=== PATIENT | female | born 1975 ===

== ENCOUNTER 2025-04-10 20:05 | Emergency (ER) | payer OTHER, SELFPAY ==
[2025-04-10] VITALS (10 sets, daily range): BP systolic 115–157; BP diastolic 77–91; PULSE 56–81; RESP 16–19; TEMP 36.7; O2SAT 94–98; BMI 36.8
[2025-04-10 21:01] LABS: Appearance Urine Clear (Clear)
[2025-04-10] MEDS: ONDANSETRON 2 MG/ML inj 4 MG IVP (21:07)
[2025-04-10 21:10] LABS: Ur HCG Qualitative* Negative (Negative)
[2025-04-10 21:29] LABS: Hematocrit 39.0 % (33.0-51.0); Hemoglobin* 13.3 gm/dL (12.0-16.0); Immature Granulocytes Abs Auto 0.04 K/uL (0.00-0.30); Immature Granulocytes Pct Auto 0.4 %; Lymphocytes Absolute Auto 2.21 K/uL (0.90-2.90); Mean Corpuscular HGB Conc 34 gm/dL (32-36); Mean Corpuscular Hemoglobin 32 pg (26-34); Mean Corpuscular Volume 93 fL (80-100); RDW Coefficient of Variation % 12.6 % (11.5-15.5); Red Blood Count 4.20 m/uL (4.00-5.20); White Blood Count* 9.81 K/uL (4.50-11.00)
[2025-04-10 21:36] LABS: Slide Review Reflex No
[2025-04-10 21:37] LABS: Troponin, Point-of-Care* 0.03 ng/ml (0.01-0.04)
[2025-04-10 21:42] LABS: Albumin* 4.1 g/dL (3.3-5.0)
[2025-04-10 21:45] LABS: Alanine Aminotransferase* 17 U/L (4-35); Alkaline Phosphatase* 88 U/L (40-150); Aspartate Amino Transferase* 33 U/L (12-35); Bilirubin Direct* 0.3 mg/dL (0.0-0.5); Bilirubin Total* 0.5 mg/dL (0.1-1.5); Total Protein* 8.1 g/dL (6.0-8.3)
--- NOTE | 2025-04-10 22:00 | CRLHL7_ITS ---
For Patients: As a result of the Century Cures Act, medical imaging exams and procedure reports are released immediately into your electronic medical record. You may view this report before your referring provider. If you have questions, please contact your health care provider. Indication: Right lower quadrant pain Technique: CT through the abdomen and pelvis following 95 mL Isovue 370 IV contrast Comparison: None Findings: Lower chest: Allowing for respiratory motion degradation, no acute abnormality appreciated. Hepatobiliary: No significant parenchymal abnormality is appreciated. Spleen: Unremarkable. Pancreas: Mild edema along the pancreatic head and uncinate process. Adrenal glands: No acute abnormality appreciated. Kidneys: No significant parenchymal abnormality appreciated. No visualized calculi. No hydronephrosis. Bowel: No obstruction. No focal perienteric or pericolonic stranding is appreciated. Question visualization of a normal appendix. No abnormal appendix is appreciated. Vascular: No acute abnormality appreciated. Lymph nodes: No gross lymphadenopathy. Peritoneum: No free air. No free fluid. : There is a 2.5 centimeter indeterminate density right ovarian/adnexal lesion. Soft tissues: No acute abnormality appreciated. Bones: No acute fracture. No lytic or blastic lesion. L5 pars defects with L4-5 spondylosis and spondylolisthesis. Impression: 1. There is a 2.5 centimeter indeterminate density right ovarian/adnexal cyst. This is poorly evaluated by this modality. Ultrasound recommended for further evaluation. 2. Mild edema along the pancreatic head and uncinate process, no prior examination available for comparison. Pancreatitis not excluded. Correlation with serum lipase recommended. 3. No other acute abnormality appreciated. Please note that all CT scans at this facility use dose modulation, iterative reconstruction, and/or weight-based dosing when appropriate to reduce radiation dose to as low as reasonably achievable. Dictated by Serg Dixon MD @ 04/10/2025 10:50:12 PM (Electronically Signed)
[2025-04-10] MEDS: PANTOPRAZOLE SODIUM 40 MG INJ IVP (23:15)
[2025-04-10 23:23] LABS: Troponin, Point-of-Care* 0.05 ng/ml (0.01-0.04)
[2025-04-10] MEDS: ASPIRIN 81 MG TAB.CHEW 324 MG PO (23:26)
--- OUTSIDE RECORDS SUMMARY | 2025-04-10 23:29 | XMS_ITS | Clinical Summary ---
Author Organization [facility] Address [address] [place] [id number] Care Team Providers Care Clinical Pathologist Name Role Phone Pcp, No Primary Care Provider Unavailabl e Allergies No known active allergies Medications No known medications Active Problems Problem Noted Date Diagnosed Date Pap smear for cervical cancer screening 05/19/20 Overview (05/19/2024): 04/2024 NIL/HPV negative Plan: HPV-based testing due 04/2029 Hypertriglyceridemia 05/10/2024 Family History Medical History Relation Name Comments Kidney failure Brother 1 Kidney failure Brother 2 Diabetes Brother 3 Kidney disease Brother 3 Heart attack Maternal Uncle Deep vein thrombosis Mother Heart Disease Mother Hypertension Mother Hypertension Sister Cancer-breast No Family History Relation Name Status Comments Brother 1 Brother 2 Brother 3 Alive Father Maternal Uncle Alive Mother Alive lives in [facility] Sister Alive Social History Tobacco Use Types Packs/Day Years Used Date Smoking Tobacco: Never Smokeless Tobacco: Never Tobacco Cessation:Counseling Given: Not Answered Alcohol Use Standard Drinks/Week Comments Not Currently 0 (1 standard drink = 0.6 oz pur e alcohol) Social Connections Answer Date Recorded Do you often feel lonely or isolated from those around you? 0 05/10/2024 Financial Resource Strain Answer Date R ecorded Difficulty of Paying Living Expenses 3 05/10/2024 Difficulty of Paying Living Expenses Not on file 05/10/2024 Food Insecurity Answer Date Recorded Do you worry your food will run out before you are able to buy more? 1 05/10/2024 Transportation Needs Answer Date Record ed Does lack of transportation keep you from medica l appointments? 1 05/10/2024 Does lack of transportation keep you from work, meetings or getting things that you need? 1 05/10/2024 Housing Stability Answer Date Recorded What is your housing situation today? 1 05/10/2024 Utilities Answer Date Recorded Do you have trouble paying f or utilities (for example, heat, electricity, water, phone)? 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 Pulse 68 06/24/2024 8:20 AM CUSTOMER SOLUT[employer] SUPERVISOR Temperature - - Respiratory Rate - - Oxygen Saturation 97% 06/24/2024 8:20 AM CUSTOMER SOLUTIONS SUPERVISOR Inhaled Oxygen Concentration - - Weight 84.9 kg (187 lb 4 oz) 05/10/2024 9:40 AM CDT Height 155 cm (5' 1.02) 05/10/2024 9:40 AM CDT Body Mass Index 35.35 05/10/2024 9:40 AM CDT Plan of Treatment Health Maintenance Due Date Last Done Comments Tetanus booster 12/10/1986 Depression screening for age 12+ 1987 HIV for age 15-65 12/10/1990 Hepatitis B series for 19+ ( 1 of 3 - 19+ 3-dose series) 12/10/1994 COVID-19 vaccine series ( season) 2024 Influenza Vaccine (#1) 2025 BMI (ht and wt on same day) for age 18+ 05/10/2025 05/10/2024 Mammogram for age 45-75 06/24/2025 06/24/2024 Fecal testing sDNA-FIT ([place] guard) for age 45-75 05/22/2027 05/22/2024 Lipids for age 45-75 05/10/2029 05/10/2024 Pap test for age 21-65 05/10/2029 05/10/2024 Hepatitis C screening for ag e 18-79 Completed 05/10/2024 Pneumococcal series for age 6-49 Aged Out No longer eligible based on patient's age to complete this topic Procedures Procedure Name Priority Date/Time Associated Diagnosis Comments XR MAMMO BILAT SCREENING Routine 06/24/2024 7:50 AM CUSTOMER SOLUTIONS SUPERVISOR Visit for screening mammogram SDNA-FIT EXTERNAL (COLOGUARD) Routine 05/22/2024 8:55 AM CDT Colon cancer screening 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 THIN PREP PAP AND HPV DNA - AGE 25 AND OVER ([facility]) Routine 05/10/2024 10:56 AM CDT Cervical cancer screening ANTI HCV Routine 05/10/2024 12:00 AM CDT Encounter for HCV screening test for low risk patient LIPID PANEL W REFLEX MEASURED LDL Routine 05/10/2024 12:00 AM CDT Hypertriglyceridemia Screening cholesterol level from Last 3 Months or Most Recently Relevant to Health Maintenance Results * XR MAMMO BILAT SCREENING (06/24/2024 7:50 AM CUSTOMER SOLUTIONS SUPERVISOR) Anatomical Region Laterality Modality BREASTS, Breast Left, Breast Right Bilateral Mammography Impressions 06/29/2024 1:43 PM CUSTOMER SOLUTIONS SUPERVISOR There is no radiographic evidence for malignancy. Recommend annual mammograms. MAMMOGRAM ASSESSMENT: ACR 1 Negative PATIENTS: You will also receive a letter with your examination results in an easy to read format. If you have questions about your results, please contact your referring provider. Narrative 06/29/2024 1:43 PM CUSTOMER SOLUTIONS SUPERVISOR For Patients: As a result of the Century Cures Act, medical imaging exams and procedure reports are released immediately into your electronic medical record. You may view this report before your referring provider. If you have questions, please contact your health care provider. XR MAMMO BILAT SCREENING [[id number]] CLINICAL HISTORY: This is an asymptomatic 48 y.o. patient. INDICATION FOR EXAM: Mammogram Screening. TECHNIQUE: CC & MLO views were obtained. This study was evaluated with the assistance of Computer-Aided Detection. COMPARISON FILM: This is a baseline study. FINDINGS: The breasts are heterogeneously dense, which may obscure small masses. There are no dominant masses, suspicious micro calcifications or areas of architectural distortion. us Felicity Campbell MD MAMMO Fi nal Result * SDNA-FIT EXTERNAL (COLOGUARD) (05/22/2024 8:55 AM CDT) NONINV COLON CA DNA+OCC BLD SCRN STL-IMP Negative Negative 06/02/2024 6:44 PM CDT [employer] (CLIA #:[id number]) Comment: NEGATIVE TEST RESULT. A negative Cologuard result indicates a low likelihood that a colorectal cancer (CRC) or advanced adenoma (adenomatous polyps with more advanced pre-malignant features) is present. The chance that a person with a negative Cologuard test has a colorectal cancer is less than 1 in 1500 (negative predictive value >99.9%) or has an advanced adenoma is less than 5.3% (negative predictive value 94.7%). These data are based on a prospective cross-sectional study of 10,000 individuals at average risk for colorectal cancer who were screened with both Cologuard and colonoscopy. (Eleonora Turcios. et al, N Engl J Med 2014;370(14):7587-5217) The normal value (reference range) for this assay is negative. COLOGUARD RE-SCREENING RECOMMENDATION: Periodic colorectal cancer screening is an important part of preventive healthcare for asymptomatic individuals at average risk for colorectal cancer. Following a negative Cologuard result, the [place] [employer] Society and U.S. Multi-Society Task Force screening guidelines recommend a Cologuard re-screening interval of 3 years. References: [place] [employer] Guideline for Colorectal Cancer Screening: https://www.cancer.org/cancer/yqnjf-wtsmpz-hbhfan/lckeoaruo-gbjwsilxn-lhffsoi/ac s-rec ommendations.html.; Benjamin MORGAN, Marcela FLORES, Jose D GardinerK, Colorectal Cancer Screening: Recommendations for Physicians and Patients from the U.S. Multi-Society Task Force on Colorectal Cancer Screening , Am J Gastroenterology 2017; 112:7614-4371. TEST DESCRIPTION: Composite algorithmic analysis of stool DNA-biomarkers with hemoglobin immunoassay. Quantitative values of individual biomarkers are not reportable and are not associated with individual biomarker result reference ranges. Cologuard is intended for colorectal cancer screening of adults of either sex, 45 years or older, who are at average-risk for colorectal cancer (CRC). Cologuard has been approved for use by the U.S. FDA. The performance of Cologuard was established in a cross sectional study of average-risk adults aged 50-84. Cologuard performance in patients ages 45 to 49 years was estimated by sub-group analysis of near-age groups. Colonoscopies performed for a positive result may find as the most clinically significant lesion: colorectal cancer [4.0%], advanced adenoma (including sessile serrated polyps greater than or equal to 1cm diameter) [20%] or non- advanced adenoma [31%]; or no colorectal neoplasia [45%]. These estimates are derived from a prospective cross-sectional screening study of 10,000 individuals at average risk for colorectal cancer who were screened with both Cologuard and colonoscopy. (Eleonora Arnold et al, N Engl J Med 2014;370(14):3299-5352.) Cologuard may produce a false negative or false positive result (no colorectal cancer or precancerous polyp present at colonoscopy follow up). A negative Cologuard test result does not guarantee the absence of CRC or advanced adenoma (pre-cancer). The current Cologuard screening interval is every 3 years. ([place] [employer] and U.S. Multi-Society Task Force). Cologuard performance data in a 10,000 patient pivotal study using colonoscopy as the reference method can be accessed at the following location: www.[employer]/results. Additional description of the Cologuard test process, warnings and precautions can be found at www.Local MotionogZumeo.comrd.com. Stool specimen (specimen) (Rectum) 05/22/2024 8:55 AM CDT 05/24/2024 11:15 AM CDT us Felicity Campbell MD URINE Fi nal Result [employer] (CLIA #:[id number]) 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 PAP [facility] Comment:ABOUT 3 YEARS PREV. BX [facility] Comment:NONE SOURCE 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 TEACHER [facility] Comment:Cervix STATEMENT OF ADEQUACY [facility] Comment: Satisfactory for evaluation. Endocervical/transformation zone component present. INTERPRETATION/RESU LT [facility] [employer] [facility] Comment: Cytology Results: Negative for intraepithelial lesion or malignancy. COMMENT [facility] Comment: This Pap test has been evaluated with computer assisted technology. CARD STRIPPER [facility] Comment: MEN, CT(ASCP) CT Screening location: [address] [address] THINPREP TIS PAP ALWAYS MESSAGE [facility] Comment: EXPLANATORY NOTE: The Pap is a screening test for cervical cancer. It is not a diagnostic test and is subject to false negative and false positive results. It is most reliable when a satisfactory sample, regularly obtained, is submitted with relevant clinical findings and history, and when the Pap result is evaluated along with historic and current clinical information. HPV HIGH RISK Not Detected NOT DETECTED [facility] Comment: Not Detected High Risk HPV types (16,18,31,33,35,39,45,51,52, 56,58,59,66,68) were not detected. Other HPV types which cause anogenital lesions may be present. The significance of the other types of HPV in malignant processes has not been established. Methodology: Real Time PCR Other (Other) 05/10/2024 10: 56 AM CDT 05/11/2024 6:56 AM CDT Narrative [facility] - 05/13/2024 8:08 PM CDT MULTIPLE TESTING PRIORITIES; ROUTINE TESTING TO FOLLOW. Felicity Campbell MD PATHOLOGY/CYTOLOGY Final Result [facility] [employer] [facility] [address] [place] [address], [facility] [address] [place] [address] * (ABNORMAL) LIPID PANEL W REFLEX MEASURED LDL (05/10/2024 12:00 AM CDT) CHOLESTEROL, TOTAL 151 <200 mg/dL [facility] HDL CHOLESTEROL 35(L) > OR = 50 mg/dL [facility] TRIGLYCERIDES 472(H) <150 mg/dL [facility] Comment: If a non-fasting specimen was collected, consider repeat triglyceride testing on a fasting specimen if clinically indicated. Laure et al. J. of Clin. Lipidol. 2015;9:129-169. LDL-CHOLESTEROL [facility] Comment: LDL cholesterol not calculated. Triglyceride levels greater than 400 mg/dL invalidate calculated LDL results. Reference range: <100 Desirable range <100 mg/dL for primary prevention; <70 mg/dL for patients with CHD or diabetic patients with > or = 2 CHD risk factors. LDL-C is now calculated using the Sonal calculation, which is a validated novel method providing better accuracy than the Friedewald equation in the estimation of LDL-C. Frank SS et al. MYRNA. 2013;310(19): 0032-2860 (http://education.SincroPool/faq/IYG092) CHOL/HDLC RATIO 4.3 <5.0 (calc) [facility] NON HDL CHOLESTEROL 116 <130 mg/dL (calc) [facility] Comment: For patients with diabetes plus 1 major ASCVD risk factor, treating to a non-HDL-C goal of <100 mg/dL (LDL-C of <70 mg/dL) is considered a therapeutic option. Blood BLOOD SPECIMEN / Unknown 05/10/2024 05/10/2024 11:17 AM CDT Narrative [facility] - 05/11/2024 6:54 AM CDT SPLIT 05/10/2024 FROM [id number] Felicity Campbell MD CHEMISTRY Fi nal Result [email or web address] [facility] [address] [place] [address], [employer] [address] [place] [address] * ANTI HCV (05/10/2024 12:00 AM CDT) HEPATITIS C ANTIBODY NON-REACTI VE NON-REACT [facility] Comment: HCV antibody was non-reactive. There is no laboratory evidence of HCV infection. In most cases, no further action is required. However, if recent HCV exposure is suspected, a test for HCV RNA (test code 05416) is suggested. For additional information please refer to http://education.Dattch/faq/ZKU89f0 (This link is being provided for informational/ educational purposes only.) Blood BLOOD SPECIMEN / Unknown 05/10/2024 05/10/2024 11:17 AM CDT Narrative [facility] - 05/12/2024 4:27 AM CDT SPLIT 05/10/2024 FROM [id number] Felicity Campbell MD SEND OUTS Fi nal Result [email or web address] [facility] [address] [place] [address], [facility] [address] [place] [phone] from Last 3 Months or Most Recently Relevant to Health Maintenance Insurance [facility] [place] Care Teams Clinical Pathologist Relationship Specialty Start Date End Date Pcp, No . PCP - General 04/15/24
[2025-04-11] VITALS (10 sets, daily range): BP systolic 109–124; BP diastolic 65–83; PULSE 59–68; RESP 13–18; TEMP 36.7; O2SAT 94–97
--- NOTE | 2025-04-11 00:19 | ED_ITS ---
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 There is no fevers or chills, she has been able to eat, does not feel that the food triggers this. There has been no cough associated with this. She denies any change in her bowel habits no dysuria frequency she has had no vaginal discharge. She does drink a lot of coffee does not drink alcohol, does not use drugs. Here today with her . Previous history of 3 previous C- sections for births. MD elicited complaint: abdominal pain Pertinent past history: none Quality: cramping and stabbing Radiation: none Migration to: no migration Exacerbating factors: nothing Relieving factors: movement Associated symptoms: denies other symptoms Treatments prior to arrival: other (Prilosec) Related Data Patient : No Home Medications ?Medication ?Instructions ?Recorded ?Confirmed No Known Home Medications 04/10/2503/19 Allergies Allergy/AdvReac Type Severity Reaction Status Date / Time No Known Drug Allergies Allergy Verified 04/10/25 20:18 Review of Systems Status of ROS Reports: 10 or more systems reviewed and unremarkable except as noted in History and below [facility] Social History Smoking Status: Never smoker How often do you have a drink containing alcohol: never AUDIT-C Alcohol total score: 0 Non-prescribed substance use: denies use Exam Narrative: Exam Narrative: On examination in room 2 she is in no apparent distress, pupils equal round reactive to light there is no scleral icterus redness or TMs are normal oropharynx normal there is no adenopathy anterior posterior chains her chest is good air entry bilaterally no wheezing crackles noted heart sounds are normal no clicks murmurs or gallops her abdomen is soft there is no guarding no organomegaly there is however tenderness the right upper quadrant on deep palpation of see a positive Rojas sign, bowel sounds are normal. There is no masses noted. She moves all extremities independently well she has no CVA tenderness, lower extremities reveal no edema swelling neurologically intact in proximal distal muscle strength is normal, skin reveals no petechiae rashes Const: Vital Signs, click to edit/add: Vital Signs - 24 hr 04/10/25 20:15 04/10/25 20:52 04/10/25 21:20 Temperature 98.0 F Pulse Rate 69 Pulse Rate [Pulse Oximeter] 65 Respiratory Rate 16 Blood Pressure Blood Pressure [Ri ght Upper Arm] 157/87 H Pulse Oximetry 98 98 94 Oxygen Delivery Me thod Room Air 04/10/25 21:30 04/10/25 21:32 04/10/25 21:45 Temperature Pulse Rate 77 65 81 Pulse Rate [Pulse Oximeter] Respiratory Rate Blood Pressure 131/88 Blood Pressure [Ri ght Upper Arm] Pulse Oximetry 94 97 96 Oxygen Delivery Me thod 04/10/25 22:00 04/10/25 22:02 04/10/25 23:31 Temperature Pulse Rate 74 56 L Pulse Rate [Pulse Oximeter] Respiratory Rate 18 Blood Pressure 121/77 Blood Pressure [Ri ght Upper Arm] Pulse Oximetry 96 98 Oxygen Delivery Me thod 04/10/25 23:42 04/11/25 00:01 04/11/25 00:01 Temperature Pulse Rate 62 68 68 Pulse Rate [Pulse Oximeter] Respiratory Rate 19 15 15 Blood Pressure 115/91 H 123/70 123/70 Blood Pressure [Ri ght Upper Arm] Pulse Oximetry 95 95 95 Oxygen Delivery Me thod 04/11/25 00:22 04/11/25 00:42 04/11/25 01:02 Temperature Pulse Rate 68 67 59 L Pulse Rate [Pulse Oximeter] Respiratory Rate 18 16 15 Blood Pressure 118/79 111/83 115/79 Blood Pressure [Ri ght Upper Arm] Pulse Oximetry 95 97 94 Oxygen Delivery Me thod Course Reevaluation(s) Time of Reevaluation #1: 02:15 Reevaluation #1: I did 3 sets enzymes says there is some question on 1 of them if she was actually a delta going up by 0.03 or 4. Her 3rd set is 000s, so I think it was likely not a true finding, her EKG shows some nonspecific ST wave changes, her CT did show that she had some mild pancreatic inflammation in the setting of a normal lipase, I wonder if she has just passed a stone. I do think an ultra sound as an outpatient would be a good idea and consideration of the stress test also. This can be done through her primary care physician. As she is currently pain-free here doing well. We will give her a small supply of Percocet and Zofran for pain as needed in-situ low-fat diet I will also like to put her on some anti reflux meds and have her slow down on her caffeinated beverages. Vital Signs Vital signs: Initial Vital Signs Temperature 98.0 F 04/10/25 20:15 Temperature Source Temporal Artery Scan 04/10/25 20:15 Pulse Rate 65 04/10/25 20:15 Respiratory Rate 16 04/10/25 20:15 Blood Pressure 157/87 H 04/10/25 20:15 Blood Pressure Mean 110 H 04/10/25 20:15 Blood Pressure Position Sitting 04/10/25 20:15 Pulse Oximetry 98 04/10/25 20:15 Oxygen Delivery Method Room Air 04/10/25 20:15 Vital Signs Temperature 98.0 F 04/10/25 20:15 Pulse Rate 65 04/10/25 20:15 Respiratory Rate 16 04/10/25 20:15 Blood Pressure 157/87 H 04/10/25 20:15 Pulse Oximetry 98 04/10/25 20:15 Oxygen Delivery Method Room Air 04/10/25 20:15 Temperature 98.0 F 04/10/25 20:15 Pulse Rate 59 L 04/11/25 01:02 Respiratory Rate 15 04/11/25 01:02 Blood Pressure 115/79 04/11/25 01:02 Pulse Oximetry 94 04/11/25 01:02 Oxygen Delivery Method Room Air 04/10/25 20:15 Medications Administered Medications: Discontinued Medications Generic Name Dose Route Start Last Admin Trade Name Freq PRN Reason Stop Dose Admin Aspirin 324 mg 04/10/25 23:21 04/10/25 23:26 Aspirin 81 Mg Tab.Chew PO 04/10/25 23:22 324 mg ONCE ONE Administration Hydromorphone HCl 0.5 mg 04/10/25 20:46 04/10/25 21:11 Hydromorphone 0.5 Mg/0.5 Ml Inj IVP 04/10/25 20:47 0.5 mg ONCE ONE Administration Sodium Chloride 1,000 mls @ 1,000 mls/hr 04/10/25 21:00 04/10/25 22:30 0.9 % Sodium Chloride 1000 Ml IV 04/10/25 21:59 Infused .Q1H TOMI Infusion Ondansetron HCl 4 mg 04/10/25 20:46 04/10/25 21:07 Ondansetron 2 Mg/Ml Inj IVP 04/10/25 20:47 4 mg ONCE ONE Administration Pantoprazole Sodium 40 mg 04/10/25 22:56 04/10/25 23:15 Pantoprazole Sodium 40 Mg Inj IVP 04/10/25 22:57 40 mg ONCE ONE Administration MDM - Abdominal Pain MDM Narrative Medical decision making narrative: During the evaluation of this patient I considered multiple differential diagnosis including life-threatening differentials which are appendicitis, aortic aneurysm, mesenteric ischemia, bowel perforation, ectopic , volvulus and bowel obstruction, other differential diagnosis include but are not limited to inflammatory bowel disease, cholecystitis, pancreatitis, hepatitis, gastritis, GERD, diverticulitis, peptic ulcer disease, pyelonephritis/UTI, renal colic/stone, pelvic inflammatory disease, cervicitis, endometritis, intrauterine , dysfunctional uterine bleeding, ovarian cyst/torsion, spontaneous as well as other etiologies We did do an EKG which was not entirely normal, she has some flipped T-waves noted in V3 V4, and some ST wave abnormalities which may be a normal variant for her, but I do not have an old 1 to compare to. Her troponin initially was 0.03, 2nd was 0.05. The laboratory 1 was 0.01. When I repeated it the 2nd 1. II do not think this is cardiac, but we did give her some aspirin. I also gave her some Dilaudid and Zofran which totally took away her discomfort. Her CT did show some tanya pancreatic inflammation. Medical Records Attestation: I reviewed the patient's medical records. Lab Data Attestation: I reviewed the patient's lab results. Labs: Lab Results 04/10/25 04/10/25 04/10/25 Range/Units 20:55 21:05 23:05 WBC 9.81 (4.50-11.00) K/uL RBC 4.20 (4.00-5.20) m/uL Hgb 13.3 (12.0-16.0) gm/dL Hct 39.0 (33.0-51.0) % MCV 93 (80-100) fL MCH 32 (26-34) pg MCHC 34 (32-36) gm/dL RDW Coeff of Jose Juan 12.6 (11.5-15.5) % Plt Count 255 (140-440) K/uL Neut % (Auto) 69.2 (42.0-72.0) % Lymph % (Auto) 22.5 (20-44) % Rhea % (Auto) 6.4 (0.0-11.0) % Eos % (Auto) 1.2 (0.0-7.0) % Baso % (Auto) 0.3 (0.0-3.0) % Neut # (Auto) 6.78 (1.7-7.0) K/uL Lymph # (Auto) 2.21 (0.90-2.90) K/uL Rhea # (Auto) 0.60 (0.00-0.90) K/UL Eos # (Auto) 0.12 (0.00-0.50) K/uL Baso # (Auto) 0.03 (0.00-0.30) K/uL Abs Immat Gran (auto) 0.04 (0.00-0.30) K/uL Imm/Tot Granulo (auto) 0.4 % Total Bilirubin 0.5 (0.1-1.5) mg/dL Direct Bilirubin 0.3 (0.0-0.5) mg/dL AST 33 (12-35) U/L ALT 17 (4-35) U/L Alkaline Phosphatase 88 (40-150) U/L Troponin I < 0.01 (0.01-0.04) ng/mL C-Reactive Protein 3.3 H (0.5-1.0) mg/dL Total Protein 8.1 (6.0-8.3) g/dL Albumin 4.1 (3.3-5.0) g/dL Lipase 82 (23-300) U/L Urine Color Light yellow (Yellow) Urine Appearance Clear (Clear) Urine pH 7.0 (5.0-8.5) Ur Specific [place] 1.010 (1.000-1.030) Urine Protein Negative (Negative) Urine Glucose (UA) Negative (Negative) Urine Ketones Negative (Negative) Urine Blood Trace-lysed A (Negative) Urine Nitrite Negative (Negative) Urine Bilirubin Negative (Negative) Urine Urobilinogen 0.2 (0.2-1.0) Ur Leukocyte Esterase Negative (Negative) Urine RBC 0-2 (0-2) Urine WBC 0-2 (0-5) Ur Squamous Epith Cells Few (None-Few) Urine Bacteria None (None) Urine HCG, Qual Negative (Negative) POC Troponin I 0.03 0.05 H (0.01-0.04) ng/ml 04/11/25 Range/Units 02:00 WBC (4.50-11.00) K/uL RBC (4.00-5.20) m/uL Hgb (12.0-16.0) gm/dL Hct (33.0-51.0) % MCV (80-100) fL MCH (26-34) pg MCHC (32-36) gm/dL RDW Coeff of Jose Juan (11.5-15.5) % Plt Count (140-440) K/uL Neut % (Auto) (42.0-72.0) % Lymph % (Auto) (20-44) % Rhea % (Auto) (0.0-11.0) % Eos % (Auto) (0.0-7.0) % Baso % (Auto) (0.0-3.0) % Neut # (Auto) (1.7-7.0) K/uL Lymph # (Auto) (0.90-2.90) K/uL Rhea # (Auto) (0.00-0.90) K/UL Eos # (Auto) (0.00-0.50) K/uL Baso # (Auto) (0.00-0.30) K/uL Abs Immat Gran (auto) (0.00-0.30) K/uL Imm/Tot Granulo (auto) % Total Bilirubin (0.1-1.5) mg/dL Direct Bilirubin (0.0-0.5) mg/dL AST (12-35) U/L ALT (4-35) U/L Alkaline Phosphatase (40-150) U/L Troponin I (0.01-0.04) ng/mL C-Reactive Protein (0.5-1.0) mg/dL Total Protein (6.0-8.3) g/dL Albumin (3.3-5.0) g/dL Lipase (23-300) U/L Urine Color (Yellow) Urine Appearance (Clear) Urine pH (5.0-8.5) Ur Specific [place] (1.000-1.030) Urine Protein (Negative) Urine Glucose (UA) (Negative) Urine Ketones (Negative) Urine Blood (Negative) Urine Nitrite (Negative) Urine Bilirubin (Negative) Urine Urobilinogen (0.2-1.0) Ur Leukocyte Esterase (Negative) Urine RBC (0-2) Urine WBC (0-5) Ur Squamous Epith Cells (None-Few) Urine Bacteria (None) Urine HCG, Qual (Negative) POC Troponin I 0.00 L (0.01-0.04) ng/ml Imaging Data CT scan - abdomen: Attestation: I have reviewed the pertinent imaging results. My impression: No acute findings. Radiologist's impression: [place] [address] Diagnostic Imaging Report Patient: Nissa Mast MR#: [id number] : 1975 Acct:[id number] Loc: ED Service Date: 04/10/[address]: Ordering Physician: Osorio Berrios M.D. Date of Service: 04/10/25 Procedure(s): CT abdomen pelvis w con Accession Number(s): [id number] cc: Osorio Berrios M.D.~ For Patients: As a result of the Century Cures Act, medical imaging exams and procedure reports are released immediately into your electronic medical record. You may view this report before your referring provider. If you have questions, please contact your health care provider. Indication: Right lower quadrant pain Technique: CT through the abdomen and pelvis following 95 mL Isovue 370 IV contrast Comparison: None Findings: Lower chest: Allowing for respiratory motion degradation, no acute abnormality appreciated. Hepatobiliary: No significant parenchymal abnormality is appreciated. Spleen: Unremarkable. Pancreas: Mild edema along the pancreatic head and uncinate process. Adrenal glands: No acute abnormality appreciated. Kidneys: No significant parenchymal abnormality appreciated. No visualized calculi. No hydronephrosis. Bowel: No obstruction. No focal perienteric or pericolonic stranding is appreciated. Question visualization of a normal appendix. No abnormal appendix is appreciated. Vascular: No acute abnormality appreciated. Lymph nodes: No gross lymphadenopathy. Peritoneum: No free air. No free fluid. : There is a 2.5 centimeter indeterminate density right ovarian/adnexal lesion. Soft tissues: No acute abnormality appreciated. Bones: No acute fracture. No lytic or blastic lesion. L5 pars defects with L4-5 spondylosis and spondylolisthesis. Impression: 1. There is a 2.5 centimeter indeterminate density right ovarian/adnexal cyst. This is poorly evaluated by this modality. Ultrasound recommended for further evaluation. 2. Mild edema along the pancreatic head and uncinate process, no prior examination available for comparison. Pancreatitis not excluded. Correlation with serum lipase recommended. 3. No other acute abnormality appreciated. Please note that all CT scans at this facility use dose modulation, iterative reconstruction, and/or weight-based dosing when appropriate to reduce radiation dose to as low as reasonably achievable. Dictated by Serg Dixon MD @ 04/10/2025 10:50:12 PM (Electronically Signed) ECG Data Attestation: I personally reviewed and interpreted this ECG as follows: ECG interpretation date: 04/11/25 Prior ECG tracings: not available for review Ischemic changes: non-specific ST-T wave changes and t wave inversions Interpretation: Non reassuring EKG with flipped T-waves in V3 and V4 which may be a normal variant but on have old EKGs to compare to. Normal sinus rhythm, Discharge Plan Discharge Clinical Impression: Abdominal pain Patient Disposition: Home w/ Parent or Adult Condition: Stable Instructions: Abdominal Pain (ED) Additional Instructions: Your heart tests have been normal. That is a good finding, I do recommend that she follow up with your regular physician and consider other testing such as a stress test, I also recommend that she get a gallbladder ultrasound as an outpatient. This can be done through your regular physician. Getting gave you a small supply of pain medication, you can use this for pain or nausea. I also would recommend that she start on Prilosec, for reflux. 20 mg a day and this may be picked up at the pharmacy. Low-fat diet is also suggested Increasing abdominal pain fevers chills or other issues I would like you to come back Activity Level: Light activity Discharge Diet: Low Fat/Low Cholesterol Prescriptions: No Action No Known Home Medications Follow Up/Referrals: Provider,Not a Local [Primary Care Provider, Family Practice] Stand Alone Forms: MyHealth Info Instructions
--- OUTSIDE RECORDS SUMMARY | 2025-04-11 00:28 | XMS_ITS | Clinical Summary ---
Author Organization [facility] Address [address] [place] [id number] Care Team Providers Care Bioinformaticist Name Role Phone Pcp, No Primary Care Provider Unavailabl e Allergies No known active allergies Medications No known medications Active Problems Problem Noted Date Diagnosed Date Pap smear for cervical cancer screening 05/19/20 24 Overview (05/19/2024): 04/2024 NIL/HPV negative Plan: HPV-based [...] Maternal Uncle Alive Mother Alive lives in [facility] Sister Alive Social History Tobacco Use [...] Comments Blood Pressure 124/73 06/24/2024 8:20 AM HALL TENDER Pulse 68 06/24/2024 8:20 AM HALL TENDER Temperature - - Respiratory Rate - - Oxygen Saturation 97% 06/24/2024 8:20 AM HALL TENDER Inhaled Oxygen Concentration - - Weight 84.9 [...] age 45-75 06/24/2025 06/24/2024 Fecal testing sDNA-FIT ([place] guard) for age 45-75 05/22/2027 05/22/2024 Lipids for age 45-75 05/10/2029 05/10/2024 Pap test for age 21-65 05/10/2029 05/10/2024 Hepatitis C screening for ag e 18-79 Completed 05/10/2024 Pneumococcal series for age 6-49 Aged Out No longer eligible based on patient's age to complete this topic Procedures Procedure Name Priority Date/Time Associated Diagnosis Comments XR MAMMO BILAT SCREENING Routine 06/24/2024 7:50 AM HALL TENDER Visit for screening mammogram SDNA-FIT EXTERNAL (COLOGUARD) Routine 05/22/2024 8:55 AM CDT Colon cancer screening CLEANER CARPET AND UPHOLSTERY THIN PREP PAP AND HPV DNA - [...] XR MAMMO BILAT SCREENING (06/24/2024 7:50 AM HALL TENDER) Anatomical Region Laterality Modality BREASTS, Breast Left, Breast Right Bilateral Mammography Impressions 06/29/2024 1:43 PM HALL TENDER There is no radiographic evidence for malignancy. Recommend annual mammograms. MAMMOGRAM ASSESSMENT: ACR 1 Negative PATIENTS: You will also receive a letter with your examination results in an easy to read format. If you have questions about your results, please contact your referring provider. Narrative 06/29/2024 1:43 PM HALL TENDER For Patients: As a result of the Century Cures Act, medical imaging exams and procedure reports are released immediately into your electronic medical record. You may view this report before your referring provider. If you have questions, please contact your health care provider. XR MAMMO BILAT SCREENING [[id number]] CLINICAL HISTORY: This is an asymptomatic 48 [...] STL-IMP Negative Negative 06/02/2024 6:44 PM CDT [facility] (CLIA #:[id number]) Comment: NEGATIVE TEST RESULT. A negative Cologuard [...] Turcios. et al, N Engl J Med 2014;370(14):9573-5839) The normal value (reference range) for this assay is negative. COLOGUARD RE-SCREENING RECOMMENDATION: Periodic colorectal cancer screening is an important part of preventive healthcare for asymptomatic individuals at average risk for colorectal cancer. Following a negative Cologuard result, the [place] Cancer Society and U.S. Multi-Society Task Force screening guidelines recommend a Cologuard re-screening interval of 3 years. References: [place] Cancer Society Guideline for Colorectal Cancer Screening: https://www.cancer.org/cancer/rdaso-taipfm-czkugb/dfxyiquha-lmnanuvxl-fvuvgau/ac s-rec ommendations.html.; Benjamin MORGAN, Marcela FLORES, Jose D GardinerK, Colorectal Cancer Screening: Recommendations for Physicians and Patients from the U.S. Multi-Society Task Force on Colorectal Cancer Screening , Am J Gastroenterology 2017; 112:4005-4093. TEST DESCRIPTION: Composite algorithmic analysis of stool [...] Arnold et al, N Engl J Med 2014;370(14):7550-4846.) Cologuard may produce a false negative or false positive result (no colorectal cancer or precancerous polyp present at colonoscopy follow up). A negative Cologuard test result does not guarantee the absence of CRC or advanced adenoma (pre-cancer). The current Cologuard screening interval is every 3 years. ([place] Cancer Society and U.S. Multi-Society Task Force). Cologuard performance data in a 10,000 patient pivotal study using colonoscopy as the reference method can be accessed at the following location: www.[employer]illar/results. Additional description of the Cologuard test process, warnings and precautions can be found at www.Piictu[employer]Fuhurd.com. Stool specimen (specimen) (Rectum) 05/22/2024 8:55 AM CDT 05/24/2024 11:15 AM CDT us Felicity Campbell MD URINE Fi nal Result [facility] (CLIA #:[id number]) [place] [address], * CLEANER CARPET AND UPHOLSTERY THIN PREP PAP AND HPV DNA - AGE 25 AND OVER ([facility]) (05/10/2024 10:56 AM CDT) CLINICAL INFORMATION [facility] Comment:Normal exam LMP [facility] Comment:04/25 PREV. PAP [facility] Comment:ABOUT 3 YEARS PREV. BX [facility] Comment:NONE SOURCE CLEANER CARPET AND UPHOLSTERY [facility] Comment:Cervix STATEMENT OF ADEQUACY [facility] Comment: Satisfactory for evaluation. Endocervical/transformation zone component present. INTERPRETATION/RESU LT [facility] Comment: Cytology Results: Negative for intraepithelial lesion or malignancy. COMMENT [facility] Comment: This Pap test has been evaluated with computer assisted technology. BEREAVEMENT PROGRAM COORDINATOR [facility] Comment: MEN, CT(ASCP) CT Screening location: [address] [address] THINPREP TIS PAP ALWAYS MESSAGE [facility] Comment: EXPLANATORY NOTE: The Pap is a [...] HPV HIGH RISK Not Detected NOT DETECTED [facility] Comment: Not Detected High Risk HPV types (16,18,31,33,35,39,45,51,52, 56,58,59,66,68) were not detected. Other HPV types which cause anogenital lesions may be present. The significance of the other types of HPV in malignant processes has not been established. Methodology: Real Time PCR Other (Other) 05/10/2024 10: 56 AM CDT 05/11/2024 6:56 AM CDT Narrative [facility] - 05/13/2024 8:08 PM CDT MULTIPLE TESTING PRIORITIES; ROUTINE TESTING TO FOLLOW. Felicity Campbell MD PATHOLOGY/CYTOLOGY Final Result [facility] [address] [place] [address], [facility] [address] [place] [address] * (ABNORMAL) LIPID PANEL W REFLEX MEASURED [...] LDL-C. Frank SS et al. MYRNA. 2013;310(19): 6702-9447 (http://education.Awesomi/faq/JLJ103) CHOL/HDLC RATIO 4.3 <5.0 (calc) [facility] [...] 05/11/2024 6:54 AM CDT SPLIT 05/10/2024 FROM [id number] Felicity Campbell MD CHEMISTRY Fi nal Result [facility] [address] [place] [address], [facility] [address] [place] [address] * ANTI HCV (05/10/2024 12:00 AM CDT) HEPATITIS C ANTIBODY NON-REACTI VE NON-REACT LETY [facility] Comment: HCV antibody was non-reactive. There is no laboratory evidence of HCV infection. In most cases, no further action is required. However, if recent HCV exposure is suspected, a test for HCV RNA (test code 78285) is suggested. For additional information please refer to http://education.BarEye/faq/UQS81d0 (This link is being provided for informational/ educational purposes only.) Blood BLOOD SPECIMEN / Unknown 05/10/2024 05/10/2024 11:17 AM CDT Narrative [facility] - 05/12/2024 4:27 AM CDT SPLIT 05/10/2024 FROM [id number] Felicity Campbell MD SEND OUTS Fi nal Result [facility] [address] [place] [address], [facility] [address] [place] [phone] from Last 3 Months or Most Recently Relevant to Health Maintenance Insurance [facility] [place] Care Teams Bioinformaticist Relationship Specialty Start Date End Date Pcp, No . PCP - General 04/15/24
[2025-04-11 02:11] LABS: Troponin, Point-of-Care* 0.00 ng/ml (0.01-0.04)
== END 2025-04-11 03:02 | disposition home or self-care (01) ==
PROVIDERS: Emergency Provider Family Medicine
DX: R10.31 Right lower quadrant pain (principal)
CPT/HCPCS: 36415; 74177; 80076; 81001; 81025; 83690; 84484; 85025; 86140; 93005; 94761; 96374; 96375; 99285; A9270; J1171; J2405; J2470; J7030; Q9967